=== PATIENT | male | born 1990 | race Two or more races ===

== ENCOUNTER 2017-07-09 15:26 | Emergency (ER) | payer SELFPAY ==
[2017-07-09] MEDS ORDERED: IOHEXOL 300 MG/ML 75 ML VIAL IV ONE (15:45)
[2017-07-09 15:59] LABS: BASO % 0 % (0-3); EOS % 0 % (0-3); HEMATOCRIT 43.4 % (39.0-53.0); HEMOGLOBIN 14.7 g/dL (13.0-17.5); LYMPH # 2.3 x10^3/uL (1.0-4.8); LYMPH % 18 % (24-48); MEAN CORPUSCULAR HEMOGLOBIN 30 pg (25-35); MEAN CORPUSCULAR HGB CONC 34 g/dL (31-37); MEAN CORPUSCULAR VOLUME 90 fL (79-100); MONO % 6 % (0-9); NEUT % 76 % (31-73); PLATELET COUNT 195 x10^3/uL (140-400); RED BLOOD COUNT 4.84 x10^6/uL (4.30-5.70); RED CELL DISTRIBUTION WIDTH 12.9 % (11.5-14.5); WHITE BLOOD COUNT 12.9 x10^3/uL (4.0-11.0)
[2017-07-09] MEDS ORDERED: fentaNYL PF VIAL 100 MCG/2 ML VIAL IV ONE (16:00)
[2017-07-09] MEDS ORDERED: ONDANSETRON PF 4 MG/2 ML VIAL. IV ONE (16:00)
[2017-07-09 16:10] LABS: CREATININE 0.8 mg/dL (0.7-1.3); GFR 114.3; POTASSIUM 3.5 mmol/L (3.5-5.1)
[2017-07-09 16:14] LABS: PROTHROMBIN TIME PATIENT 12.7 SEC (11.7-14.0)
--- NOTE | 2017-07-09 16:15 | EKG ---
[facility] [address] [place] [address] Test Date: 2017-07-09 Test Time: 15:45:58 Pat Name: LAYTON LEBLANC Department: Room: Gender: M Control System Manager: : 1990 Requested By: SIRISHA TIPTON Order Number: [id number] Reading MD: Lc Conde Measurements Intervals [place] Rate: 74 P: 0 MO: 142 QRS: 4 QRSD: 94 T: 30 QT: 354 QTc: 393 Interpretive Statements SINUS RHYTHM Electronically Signed On 07-15-2017 10:16:04 CDT by Lc Conde
[2017-07-09 16:16] LABS: ALBUMIN 4.1 g/dL (3.4-5.0); ALBUMIN/GLOBULIN RATIO 1.1 (1.0-1.7); MAGNESIUM 1.8 mg/dL (1.8-2.4); TOTAL BILIRUBIN 0.6 mg/dL (0.2-1.0); TOTAL PROTEIN 7.7 g/dL (6.4-8.2)
[2017-07-09 16:35] LABS: BILIRUBIN,URINE NEGATIVE (NEG); GLUCOSE,URINE NEGATIVE (NEG); NITRITE,URINE NEGATIVE (NEG); PH,URINE 5.5; PROTEIN,URINE NEGATIVE (NEG-TRACE); UROBILINOGEN,URINE 0.2 mg/dL (0.2 mg/dL)
[2017-07-09 16:40] LABS: BARBITURATES NEG (NEG); BENZODIAZEPINES NEG (NEG); CANNABINOIDS NEG (NEG); COCAINE NEG (NEG); METHADONE NEG (NEG); OPIATES NEG (NEG); PHENCYCLIDINE NEG (NEG)
[2017-07-09 17:04] LABS: BACTERIA,URINE 0 /HPF (0-FEW); RBC,URINE 0 /HPF (0-2); SQUAMOUS EPITHELIAL CELL,UR FEW /LPF; WBC,URINE OCC /HPF (0-4)
--- NOTE | 2017-07-09 17:22 | RAD ---
CT CHEST ABD PELVIS W/CONTRAST dated 07/09/2017 4:40 PM Indication: Chest pain, upper abdominal pain recently fell off horse, pain Comparison: No comparison is available. Technique: Contiguous axial imaging of the chest and abdomen and pelvis performed following intravenous and demonstration of 75 cc Omnipaque 300. One or more of the following individualized dose reduction techniques were utilized for this examination: 1. Automated exposure control 2. Adjustment of the mA and/or kV according to patient size 3. Use of iterative reconstruction technique Findings: Heart size within normal limits. No pericardial effusion. Mild ectasia of the ascending thoracic aorta measuring 3.8 cm transverse. No mediastinal, hilar or axillary lymphadenopathy. Thyroid gland unremarkable. Central airways are patent. Mild diffuse bronchial wall thickening. Patchy and linear opacity at both lung bases, likely scar or atelectasis. No pleural effusion or pneumothorax. Images of the abdomen show diffuse low-density liver compatible with fatty infiltration. The liver appears somewhat enlarged. Spleen is normal in size. No hematoma or laceration. Pancreas, adrenal glands, gallbladder and kidneys are unremarkable. No hydronephrosis. Unopacified GI tract normal in caliber and contour. No focal bowel wall thickening. No inflammatory stranding in the mesentery. The appendix is normal in caliber. No ascites or lymphadenopathy. Images of pelvis a nondistended urinary bladder. Prostate gland mildly enlarged. No free fluid or lymphadenopathy. Bone windows show no acute findings. Mild multilevel spondylosis. There is bilateral spondylolysis at L5-S1 without significant listhesis. IMPRESSION CHEST: 1. No traumatic abnormality of chest. 2. Patchy and linear opacities at both lung bases, likely dependent atelectasis. Impression abdomen pelvis: 1. No traumatic abnormality of abdomen or pelvis. 2. Mild fatty infiltration of the liver. Electronically signed by: Grupo Dalton MD (07/09/2017 5:19 PM) [facility]
--- NOTE | 2017-07-09 17:31 | PHYS DOC ---
Past Medical History Past Medical History: No Pertinent History Additional Past Surgical Histo: FINGER TENDON REPAIR Alcohol Use: Occasionally Drug Use: None Adult General Chief Complaint Chief Complaint: RIB PAIN HPI HPI Patient is a 27 year old male presenting to the emergency department for evaluation of left lateral rib pain left upper quadrant abdominal pain intractable hiccups status post falling off a horse 4 days ago. Patient does not speak any Persian so recommended blue phone buttoner line and the patient refused stating he wanted his family to interpret for him. Reportedly the horse had not been broken in and the started running and then stopped suddenly and the patient flipped off forward landing on his left side. He was seen by his primary care provider yesterday and had a normal chest x-ray but returned to his PCP today and he had worsening pain and hiccups and he was referred to the emergency department. Patient appears uncomfortable especially with the hiccups. He is healthy takes no blood thinners and has normal vital signs. Review of Systems Review of Systems Constitutional: Denies fever or chills [] Eyes: Denies change in visual acuity, redness, or eye pain [] HENT: Denies nasal congestion or sore throat [] Respiratory: Denies cough or shortness of breath [] Cardiovascular: No additional information not addressed in HPI [] GI: + abdominal pain. No nausea, vomiting, bloody stools or diarrhea [] : Denies dysuria or hematuria [] Musculoskeletal: + back pain. No joint pain [] Integument: + abrasion( tdap UTD) Neurologic: Denies headache, focal weakness or sensory changes [] Current Medications Current Medications Current Medications Medications (Trade) Dose Ordered Sig/Lm Start Time Stop Time Status Last Admin Dose Admin Chlorpromazine HCl 25 mg/Sodium Chloride 51 ml @ 100 mls/hr 1X ONCE 07/09/17 16:00 07/09/17 16:30 DC 07/09/17 16:13 100 MLS/HR Fentanyl Citrate (Fentanyl 2ml Vial) 50 mcg 1X ONCE 07/09/17 16:00 07/09/17 16:01 DC 07/09/17 16:10 50 MCG Iohexol (Omnipaque 300 Mg/ml) 75 ml 1X ONCE 07/09/17 15:45 07/09/17 15:59 DC 07/09/17 16:39 75 ML Ondansetron HCl (Zofran) 4 mg 1X ONCE 07/09/17 16:00 07/09/17 16:01 DC 07/09/17 16:11 4 MG Allergies Allergies Allergies Coded Allergies Type Severity Reaction Last Updated Verified No Known Drug Allergies 07/09/17 No Physical Exam Physical Exam Constitutional: Well developed, well nourished, no acute distress, non-toxic appearance. [] HENT: Normocephalic, atraumatic, bilateral external ears normal, oropharynx moist, no oral exudates, nose normal. [] Eyes: PERRLA, EOMI, conjunctiva normal, no discharge. [] Neck: Normal range of motion, no tenderness, supple, no stridor. [] Cardiovascular:Heart rate regular rhythm, no murmur [] Lungs & Thorax: Bilateral breath sounds clear to auscultation. Exquisite tenderness to palpation of left lower lateral ribs. Abdomen: Bowel sounds normal, soft, mild left upper quadrant tenderness, no masses, no pulsatile masses. [] Skin: Warm, dry, no erythema, no rash. [] Back: No tenderness, no CVA tenderness. [] Extremities: No tenderness, no cyanosis, no clubbing, ROM intact, no edema. [] Neurologic: Alert and oriented X 3, normal motor function, normal sensory function, no focal deficits noted. [] Psychologic: Affect normal, judgement normal, mood normal. [] Current Patient Data Vital Signs Vital Signs Date Time Temp Pulse Resp B/P (MAP) Pulse Ox O2 Delivery O2 Flow Rate FiO2 07/09/17 16:45 65 16 111/71 (84) 98 Room Air 07/09/17 15:40 98.2 98.2 Lab Values Laboratory Tests Test 07/09/17 15:50 07/09/17 16:20 White Blood Count 12.9 x10^3/uL (4.0-11.0) H Red Blood Count 4.84 x10^6/uL (4.30-5.70) Hemoglobin 14.7 g/dL (13.0-17.5) Hematocrit 43.4 % (39.0-53.0) Mean Corpuscular Volume 90 fL (79-100) Mean Corpuscular Hemoglobin 30 pg (25-35) Mean Corpuscular Hemoglobin Concent 34 g/dL (31-37) Red Cell Distribution Width 12.9 % (11.5-14.5) Platelet Count 195 x10^3/uL (140-400) Neutrophils (%) (Auto) 76 % (31-73) H Lymphocytes (%) (Auto) 18 % (24-48) L Monocytes (%) (Auto) 6 % (0-9) Eosinophils (%) (Auto) 0 % (0-3) Basophils (%) (Auto) 0 % (0-3) Neutrophils # (Auto) 9.8 x10^3uL (1.8-7.7) H Lymphocytes # (Auto) 2.3 x10^3/uL (1.0-4.8) Monocytes # (Auto) 0.7 x10^3/uL (0.0-1.1) Eosinophils # (Auto) 0.0 x10^3/uL (0.0-0.7) Basophils # (Auto) 0.0 x10^3/uL (0.0-0.2) Prothrombin Time 12.7 SEC (11.7-14.0) Prothrombin Time INR 1.0 (0.8-1.1) PTT 26 SEC (24-38) Sodium Level 136 mmol/L (136-145) Potassium Level 3.5 mmol/L (3.5-5.1) Chloride Level 97 mmol/L (98-107) L Carbon Dioxide Level 28 mmol/L (21-32) Anion Gap 11 (6-14) Blood Urea Nitrogen 20 mg/dL (8-26) Creatinine 0.8 mg/dL (0.7-1.3) Estimated GFR (Cockcroft-Gault) 114.3 BUN/Creatinine Ratio 25 (6-20) H Glucose Level 132 mg/dL (70-99) H Calcium Level 9.0 mg/dL (8.5-10.1) Magnesium Level 1.8 mg/dL (1.8-2.4) Total Bilirubin 0.6 mg/dL (0.2-1.0) Aspartate Amino Transferase (AST) 41 U/L (15-37) H Alanine Aminotransferase (ALT) 100 U/L (16-63) H Alkaline Phosphatase 101 U/L (46-116) Creatine Kinase 137 U/L (39-308) Troponin I Quantitative < 0.017 ng/mL (0.000-0.055) Total Protein 7.7 g/dL (6.4-8.2) Albumin 4.1 g/dL (3.4-5.0) Albumin/Globulin Ratio 1.1 (1.0-1.7) Lipase 144 U/L (73-393) Ethyl Alcohol Level < 10 mg/dL (0-10) Urine Collection Type Unknown Urine Color Yellow Urine Clarity Clear Urine pH 5.5 Urine Specific [place] 1.025 Urine Protein Negative mg/dL (NEG-TRACE) Urine Glucose (UA) Negative mg/dL (NEG) Urine Ketones (Stick) Negative mg/dL (NEG) Urine Blood Negative (NEG) Urine Nitrite Negative (NEG) Urine Bilirubin Negative (NEG) Urine Urobilinogen Dipstick 0.2 mg/dL (0.2 mg/dL) Urine Leukocyte Esterase Negative (NEG) Urine RBC 0 /HPF (0-2) Urine WBC Occ /HPF (0-4) Urine Squamous Epithelial Cells Few /LPF Urine Bacteria 0 /HPF (0-FEW) Urine Mucus Slight /LPF Urine Opiates Screen Neg (NEG) Urine Methadone Screen Neg (NEG) Urine Barbiturates Neg (NEG) Urine Phencyclidine Screen Neg (NEG) Urine Amphetamine/Methamphetamine Neg (NEG) Urine Benzodiazepines Screen Neg (NEG) Urine Cocaine Screen Neg (NEG) Urine Cannabinoids Screen Neg (NEG) Urine Ethyl Alcohol Neg (NEG) Laboratory Tests 07/09/17 15:50 Laboratory Tests 07/09/17 15:50 EKG EKG Sinus rhythm at 74 bpm with normal axis no obvious ST elevation or depression and normal T waves. Radiology/Procedures Radiology/Procedures CT CHEST ABD PELVIS W/CONTRAST dated 07/09/2017 4:40 PM Indication: Chest pain, upper abdominal pain recently fell off horse, pain Comparison: No comparison is available. Technique: Contiguous axial imaging of the chest and abdomen and pelvis performed following intravenous and demonstration of 75 cc Omnipaque 300. One or more of the following individualized dose reduction techniques were utilized for this examination: 1. Automated exposure control 2. Adjustment of the mA and/or kV according to patient size 3. Use of iterative reconstruction technique Findings: Heart size within normal limits. No pericardial effusion. Mild ectasia of the ascending thoracic aorta measuring 3.8 cm transverse. No mediastinal, hilar or axillary lymphadenopathy. Thyroid gland unremarkable. Central airways are patent. Mild diffuse bronchial wall thickening. Patchy and linear opacity at both lung bases, likely scar or atelectasis. No pleural effusion or pneumothorax. Images of the abdomen show diffuse low-density liver compatible with fatty infiltration. The liver appears somewhat enlarged. Spleen is normal in size. No hematoma or laceration. Pancreas, adrenal glands, gallbladder and kidneys are unremarkable. No hydronephrosis. Unopacified GI tract normal in caliber and contour. No focal bowel wall thickening. No inflammatory stranding in the mesentery. The appendix is normal in caliber. No ascites or lymphadenopathy. Images of pelvis a nondistended urinary bladder. Prostate gland mildly enlarged. No free fluid or lymphadenopathy. Bone windows show no acute findings. Mild multilevel spondylosis. There is bilateral spondylolysis at L5-S1 without significant listhesis. IMPRESSION CHEST: 1. No traumatic abnormality of chest. 2. Patchy and linear opacities at both lung bases, likely dependent atelectasis. Impression abdomen pelvis: 1. No traumatic abnormality of abdomen or pelvis. 2. Mild fatty infiltration of the liver. Electronically signed by: Grupo Dalton MD (07/09/2017 5:19 PM) [facility] DICTATED and SIGNED BY: GRUPO DALTON MD DATE: 07/09/17 0562 Course & Med Decision Making Course & Med Decision Making Patient with odd presentation as most of his pain seems to be along with the hiccups. His workup is completely negative for acute process. I suspect that he has rib pain from the fall and the hiccups or exacerbating his costochondritis. I gave him fentanyl Thorazine Zofran and his symptoms of pain and hiccups completely resolved. Patient continues to have normal vital signs and he has no pain on abdominal exam. Given patient appears well with normal vital signs benign physical exam and workup she'll be discharged with instructions to take NSAIDs for pain and [place] for breakthrough pain and Thorazine for intractable hiccups. Patient aware and agreeable with plan for discharge and verbalized understanding of the need for short-term follow-up and strict ED return precautions discussed worsening pain fevers vomiting or other general concerns. Dragon Disclaimer Anelon Disclaimer This electronic medical record was generated, in whole or in part, using a voice recognition dictation system. Departure Departure Impression: Primary Impression: Rib pain on left side Additional Impression: Hiccups Disposition: 01 HOME, SELF-CARE Condition: GOOD Referrals: NO PCP (PCP) Patient Instructions: Rib Contusion Additional Instructions: TAKE 400MG OF IBUPROFEN EVERY 6 HOURS FOR PAIN AND THE NORCO FOR BREAKTHROUGH PAIN. THE THORAZINE IS NEEDED FOR THE HICCUPS. FOLLOW WITH A PCP LATER THIS WEEK AND COME BACK TO THE ED SOONER WITH WORSENING PAIN, SOA, OR OTHER GENERAL CONCERNS. THANK YOU! Scripts Chlorpromazine Hcl (CHLORPROMAZINE HCL) 25 Mg Tablet 25 MG PO TID Y for HICCUPS, #5 TAB Prov: SIRISHA TIPTON DO 07/09/17 Hydrocodone/Apap 5-325 (NORCO 5-325 TABLET) 1 Each Tablet 1 TAB PO PRN Q6HRS Y for PAIN, #10 TAB 0 Refills Prov: SIRISHA TIPTON DO 07/09/17 Problem Qualifiers SIRISHA TIPTON DO Jul 09, 2017 17:31
[2017-07-09 17:45] VITALS: BP 111/71
[2017-07-09] MEDS ORDERED: HYDR-971 PO (17:46)
[2017-07-09] MEDS ORDERED: CHLO25TA4 PO (17:46)
== END 2017-07-09 17:50 | disposition home or self-care (01) ==
LOC: ER 15:26
DX: R07.81 Pleurodynia (principal); R06.6 Hiccough; R10.12 Left upper quadrant pain; M54.89 Other dorsalgia; V80.010A Animal-rider injured by fall from or being thrown from horse in noncollision accident, initial encounter; Y93.52 Activity, horseback riding; Y92.89 Other specified places as the place of occurrence of the external cause; Y99.8 Other external cause status
CPT/HCPCS: 36415; 71260; 74177; 80053; 80307; 81001; 82550; 83690; 83735; 84484; 85025; 85610; 85730; 86850; 86900; 86901; 93005; 96365; 96375; 99285; G0480; J2405; J3010; J3230; Q9967; G0479